=== PATIENT | female | born 2000 | race Caucasian/White ===

== ENCOUNTER 2019-09-03 20:38 | Emergency (ER) | payer SELFPAY ==
[2019-09-03 20:59] VITALS: BP 113/62
--- NOTE | 2019-09-03 21:25 | ED Physician Documentation ---
History of Present Illness - Stated complaint Stated Complaint: R PINKY TOE INJURY - Chief complaint Chief Complaint: Ext Problem - History obtained from History obtained from: Patient - History of Present Illness Timing: Today, How many hours ago (1.5) Pain level max: 8 Pain level now: 2 - Additonal information Additional information: 19-year-old female presents to the emergency department after she was getting out of bed tonight and injured her right pinky toe. She states that it was deviated to the side and bruised and swollen. She states it looks better now. Worse with movement and better with rest. Review of Systems Constitutional: denies: Chills : denies: Now [facility] PAST MEDICAL HISTORY - Past Medical History Past Medical History: No - Past Surgical History Past Surgical History: No - Allergies Allergies/Adverse Reactions: Allergies Allergy/AdvReac Type Severity Reaction Status Date / Time amoxicillin Allergy Anaphylaxis Verified 09/03/19 20:55 - Living Situation Living Situation: reports: With family Living Arrangement: reports: At home - Social History Does the pt have substance abuse?: No - Family History Family history: reports: Non contributory PD ED PE NORMAL - Vitals Vital signs reviewed: Yes - General General: Alert and oriented X 3, No acute distress - Derm Derm: Warm and dry - Extremities Extremities: Other (Mild swelling to the right fifth toe. Proximal phalanx. Mild tenderness. No deformity. Neurovascular intact.) - Neuro Neuro: Alert and oriented X 3 Results - Vitals Vitals: Vital Signs - 24 hr 09/03/19 20:52 Temperature 37.0 C Heart Rate 74 Respiratory 16 Rate Blood Pressure 113/62 O2 Saturation 100 Oxygen O2 Source Room air - Rads (name of study) Right fifth toe x-ray Radiology: Prelim report reviewed, EMP read contemporaneously, See rad report (No acute abnormality) PD MEDICAL DECISION MAKING - ED course Complexity details: reviewed results, considered differential, d/w patient ED course: Patient with a right fifth toe sprain. She declines any treatment here. We will have her follow-up with her doctor as needed. Patient counseled regarding signs and symptoms for which I believe and urgent re-evaluation would be necessary. Patient with good understanding of and agreement to plan and is comfortable going home at this time This document was made in part using voice recognition software. While efforts are made to proofread this document, sound alike and grammatical errors may occur. Departure - Departure Disposition: 01 Home, Self Care Clinical Impression: Sprain of toe, fifth, right Qualifiers: Encounter type: initial encounter Qualified Code(s): S93.504A - Unspecified sprain of right lesser toe(s), initial encounter Condition: Good Instructions: ED Sprain Toe Follow-Up: your,doctor as needed [Other] Comments: Return if you worsen. you can use motrin or tylenol for pain. Your xray does not show any acute fractures. Discharge Date/Time: 09/03/19 21:34
--- NOTE | 2019-09-03 21:26 | XRAY Report ---
Reason: R 5th digit injury Procedure Date: 09/03/2019 Accession Number: [id number] / [id number] Procedure: XR - Toe(s) RT CPT Code: Final Report FULL RESULT: EXAM: RIGHT 5TH TOE RADIOGRAPHY. EXAM DATE: 09/03/2019 09:18 PM. CLINICAL HISTORY: Right 5th digit injury. COMPARISON: None. TECHNIQUE: 3 views. FINDINGS: Bones: Normal. No fracture or bone lesion. Joints: Normal. No subluxations. Soft Tissues: Normal. No soft tissue swelling. IMPRESSION: Normal toe radiography. [facility]
== END 2019-09-03 21:34 | disposition home or self-care (01) ==
LOC: ED 20:38
DX: S93.504A Unspecified sprain of right lesser toe(s), initial encounter (principal); X58.XXXA Exposure to other specified factors, initial encounter; Y93.89 Activity, other specified; Y92.003 Bedroom of unspecified non-institutional (private) residence as the place of occurrence of the external cause
CPT/HCPCS: 73660; 99283

== ENCOUNTER 2021-07-23 08:00 | Outpatient (CLI) | payer OTHER | END 2021-07-23 23:59 | disposition home or self-care (01) | LOC: LAB.N 08:00 | PROVIDERS: ATTEND Registered Nurse | DX: J02.9 Acute pharyngitis, unspecified (principal); Z20.822 Contact with and (suspected) exposure to COVID-19 | CPT/HCPCS: 87275; 87276 ==